=== PATIENT | female | born 1985 | race Caucasian/White ===

== ENCOUNTER 2022-08-17 20:17 | Emergency (ER) | payer MEDICAID, SELFPAY ==
[2022-08-17 21:11] VITALS: PULSE 84; RESP 18; TEMP 36.7; O2SAT 100
--- NOTE | 2022-08-17 22:34 | ED_ITS ---
HPI - General Adult General Date Seen: 08/17/22 Chief complaint: Fever Stated complaint: Cough Chest Hurts Body Pain Time Seen by Provider: 08/17/22 21:15 Source: patient Mode of arrival: ambulatory Limitations: no limitations History of Present Illness HPI narrative: Patient is a 36-year-old female comes in with one day of fever, headaches, body aches, cough. Her daughter was diagnosed with influenza two days ago. She is able to eat and drink. No nausea, vomiting, diarrhea. She is not wheezy or short of breath. Related Data Previous Rx's Medication Instructions Recorded oseltamivir 75 mg capsule (Tamiflu) 75 mg PO BID 5 days #10 caps 08/17/22 Allergies Allergy/AdvReac Type Severity Reaction Status Date / Time No Known Drug Allergies Allergy Verified 08/17/22 21:15 Review of Systems Narrative: Review of systems is outlined above otherwise noted to be negative. PFSH PFSH Social History Smoking Status: Never smoker Do you use any of these nicotine containing products: None Second hand tobacco smoke exposure: No How often do you have a drink containing alcohol: never How often do you have six or more drinks on one occasion: Never AUDIT-C Alcohol total score: 0 Non-prescribed substance use: denies use service: No Exam Const: Vital Signs, click to edit/add: Vital Signs - 24 hr 08/17/22 21:11 Temperature 98.1 F Pulse Rate [Left P ulse Oximeter] 84 Respiratory Rate 18 Pulse Oximetry 100 Oxygen Delivery Me thod Room Air Course Vital Signs Vital signs: Initial Vital Signs Temperature 98.1 F 08/17/22 21:11 Temperature Source Temporal Artery Scan 08/17/22 21:11 Pulse Rate 84 08/17/22 21:11 Pulse Rhythm 08/17/22 21:11 Respiratory Rate 18 08/17/22 21:11 Pulse Oximetry 100 08/17/22 21:11 Oxygen Delivery Method 08/17/22 21:11 Vital Signs Temperature 98.1 F 08/17/22 21:11 Pulse Rate 84 08/17/22 21:11 Respiratory Rate 18 08/17/22 21:11 Pulse Oximetry 100 08/17/22 21:11 Oxygen Delivery Method 08/17/22 21:11 Temperature 98.1 F 08/17/22 21:11 Pulse Rate 84 08/17/22 21:11 Respiratory Rate 18 08/17/22 21:11 Pulse Oximetry 100 08/17/22 21:11 Oxygen Delivery Method 08/17/22 21:11 Discharge Plan Discharge Clinical Impression: Influenza Patient Disposition: Home, Self-Care Condition: Stable Additional Instructions: Rest, push fluids, take Tylenol and ibuprofen for pain and fever. Tamiflu 75 mg twice a day for five days. Follow-up if worsening or no improvement over the next five days. Prescriptions: New oseltamivir [Tamiflu] 75 mg capsule 75 mg PO BID 5 Days Qty: 10 0RF Follow Up/Referrals: Sydnie Mills MD [Staff Physician] - Stand Alone Forms: algrano Info Instructions
== END 2022-08-17 22:36 | disposition home or self-care (01) ==
LOC: ED 22:36
PROVIDERS: Emergency Provider Family Medicine
DX: J10.1 Influenza due to other identified influenza virus with other respiratory manifestations (principal)
CPT/HCPCS: 99282; 99283; 99284